=== PATIENT | male | born 1970 | race Caucasian/White ===

== ENCOUNTER 2022-12-19 11:26 | Emergency (ER) | payer OTHER, MEDICARE, MEDICAID ==
--- NOTE | 2022-12-19 12:30 | ED General ---
General Chief Complaint: Neurological Problems Stated Complaint: SEIZURES Nursing Triage Note: PT ARRIVED BY [facility] WITH CC OF SEIZURE. PT WAS IN CAR AND WENT UNRESPONSIVE, PTS PULLED PT OUT OF CAR AND STARTED CHEST COMPRESSIONS. WHEN EMS ARRIVED PT HAD, HAD A SEIZURE AND HAD A PRESENT PULSE. EMS STATED THAT PT HIT HEAD ON CAR WHEN HE WAS PULLED OUT. PT HAS TERMINAL LUNG CANCER AND IS ON HOSPICE. Source of Information: Patient, Family Exam Limitations: No Limitations History of Present Illness Date Seen by Provider: Dec 19, 2022 Time Seen by Provider: 11:50 Initial Comments Patient is a 52-year-old male who presents to the emergency department with a chief complaint of alleged seizure like activity/syncope. He has a history of end-stage lung cancer currently on hospice. He is here in town visiting family, resides in [facility]. He was driving in the car with his , not wearing his oxygen as he usually does at 3 to 4 L when he suddenly became unresponsive. EMS and police responded pulled him out of the car and EMS noted that it looked like he was having a seizure. His had been performing chest compressions in the car prior to them pulling him out of the vehicle. After approximately a minute EMS states that he was awake, alert. Patient has no recollection of the events. He denies any chest pain currently he denies feeling short of breath. He is approximately 86% on room air. He does appear little dyspneic. He is not nauseous, has no abdominal pain. He initially declines any evaluation. His arrived shortly after and states th at he has to be alive until they get back to [place] in 2 to 3 days. We did discuss evaluation in the emergency department with his hospice care team. They stated that as long as he was not admitted he could remain on hospice. His would like us to check some basic labs as the patient has been going to intermittent V. tach. He does have a pacer defibrillator. His defibrillator is turned off. It seems his pacer is kicking in when he goes into a slow V. tach rate in the 80s low 90s. He is asymptomatic when this happens. Multiple runs were observed on telemetry. Timing/Duration: 1/2 Hour Severity: Severe Associated Systoms: Denies Symptoms Allergies and Home Medications Allergies Coded Allergies: morphine (Verified Allergy, Unknown, 12/19/22) Uncoded Allergies: ALL -cillins (Allergy, Unknown, 12/19/22) Patient Home Medication List Home Medication List Reviewed: Yes Review of Systems Review of Systems Constitutional: see HPI Respiratory: no symptoms reported Cardiovascular: no symptoms reported Gastrointestinal: no symptoms reported Musculoskeletal: no symptoms reported Skin: no symptoms reported Psychiatric/Neurological: No Symptoms Reported All Other Systems Reviewed Negative Unless Noted: Yes Past Ocoyooy-Mqkftj-Vrvkod Hx Patient Social History Tobacco Use?: Yes Tobacco type used: Cigarettes Substance use?: No Alcohol Use?: No Past Medical History Surgery/Hospitalization HX: lung cancer Physical Exam Vital Signs Vital Signs - First Documented 12/19/22 12/19/22 11:35 11:37 Temp 36.4 Pulse 83 Resp 19 B/P (MAP) 122/77 (92) Pulse Ox 95 O2 Delivery Nasal Cannula O2 Flow Rate 3.00 Capillary Refill : Height, Weight, BMI Height: '" Weight: lbs. oz. kg; BMI Method: General Appearance: No Apparent Distress, WD/WN Eyes: Bilateral Eye Normal Inspection, Bilateral Eye PERRL, Bilateral Eye EOMI HEENT: PERRL/EOMI Neck: Normal Inspection Respiratory: No Accessory Muscle Use, No Respiratory Distress, Crackles, Rhonci (left > right) Cardiovascular: Regular Rate, Rhythm, Normal Peripheral Pulses Gastrointestinal: Non Tender, Soft Extremity: Normal Capillary Refill, Normal Inspection, Normal Range of Motion, No Calf Tenderness, Pedal Edema (1-2+ bilateral) Neurologic/Psychiatric: Alert, Oriented x3, No Motor/Sensory Deficits, Normal Mood/Affect, quality inspector II-XII Norm as Tested Skin: Warm/Dry, Pallor Progress/Results/Core Measures Suspected Sepsis SIRS Temperature: Pulse: 83 Respiratory Rate: 19 Blood Pressure 122 /77 Mean: 92 Laboratory Tests 12/19/22 11:30: Creatinine 1.21 Results/Orders Lab Results Laboratory Tests Test 12/19/22 11:30 Range/Units Sodium Level 127 L 135-145 MMOL/L Potassium Level 2.6 L 3.6-5.0 MMOL/L Chloride Level 83 L 98-107 MMOL/L Carbon Dioxide Level 30 21-32 MMOL/L Anion Gap 14 5-14 MMOL/L Blood Urea Nitrogen 14 7-18 MG/DL Creatinine 1.21 0.60-1.30 MG/DL Estimat Glomerular Filtration Rate 72 BUN/Creatinine Ratio 12 Glucose Level 164 H 70-105 MG/DL Calcium Level 9.6 8.5-10.1 MG/DL Magnesium Level 1.6 1.6-2.4 MG/DL My Orders Orders - BINTA MARIE MD Ed Iv/Invasive Line Start (12/19/22 12:24) Basic Metabolic Panel (12/19/22 12:24) Magnesium (12/19/22 12:24) Ekg Tracing (12/19/22 12:24) Potassium Chloride (Tablet) (K Dur Table (12/19/22 13:15) Potassium Cl 10meq/50ml Ivpb (Kcl 10 Meq (12/19/22 13:15) Ns Iv 1000 Ml (Sodium Chloride 0.9%) (12/19/22 13:08) General/Regular (12/19/22 Lunch) Medications Given in ED Vital Signs/I&O 12/19/22 12/19/22 12/19/22 11:35 11:37 15:18 Temp 36.4 Pulse 83 91 Resp 19 B/P (MAP) 122/77 (92) 103/84 Pulse Ox 95 98 O2 Delivery Nasal Cannula Nasal Cannula Nasal Cannula O2 Flow Rate 3.00 3.00 3.00 Capillary Refill : Blood Pressure Mean: 92 Progress Note #1: Time: 12:48 Progress Note Watching monitor - noted patient went into VT, up to 200, then vfib and was defibrillated. maintained level of consciousness throughout. Progress Note #2: Time: 13:10 Progress Note Patient seen and evaluated by me. Evaluation today includes physical exam, EKG, ongoing telemetry and after much discussion with patient and family minimal basic labs, magnesium level and basic metabolic panel. Physical exam remarkable for well-developed well-nourished ill-appearing 52-year-old male. Awake, alert and oriented. He has rhonchus crackly breath sounds bilaterally left greater than right. No increased work of breathing but was hypoxic on room air at 85%. Was placed on supplemental oxygen at 4 L per nasal cannula. Oxygen saturations improved to 94%. Heart is tachycardic, irregular and intermittently V. tach. Abdomen exam is soft. He has 1-2+ pitting edema in the bilateral lower extremities. Differential diagnosis based on history and physical exam metabolic derangement, acute coronary syndrome, pneumonia, end-of-life. Labs, EKG independently reviewed and interpreted by me. Patient is noted to go into V. tach quite frequently on telemetry. He does have a pacer defibrillator and is also frequently paced. His basic metabolic panel is significant for a sodium level of 127, potassium of 2.6, chloride of 83 bicarb of 30 BUN of 14 creatinine 1.21, blood sugar 164. Magnesium level is 1.6. Had a long discussion/shared decision making again with the patient regarding goals of evaluation. The patient is insistent on maintaining his hospice care and DNR status. His is quite distraught about this as they have to return to [place] at the end of the weekend. We did contact their hospice care provider who said that he could have evaluation and treatment in the ER but not admission in order to maintain hospice status. We will go ahead and treat his hypokalemia with 20 mEq of IV potassium and 40 p.o. This may help improve his cardiac dysrhythmia. He has been shocked by his defibrillator now twice. It is set to shock at rates greater than 160. I have advised both the patient and his family that there is a strong likelihood he may not survive the weekend. They verba lized understanding, wished to proceed with care and then discharged to home. (defibrillator fired again at this time in ED 1327) ECG Initial ECG Impression Date: Dec 19, 2022 Initial ECG Impression Time: 11:41 Initial ECG Rate: 125 Initial ECG Rhythm: V.Tach Comment paced and VT Departure Impression Primary Impression: Ventricular tachycardia (paroxysmal) Additional Impressions: History of lung cancer Hypokalemia Disposition: 01 HOME, SELF-CARE Condition: Improved Departure-Patient Inst. Decision time for Depature: 15:00 Referrals: NO,LOCAL PHYSICIAN (PCP/Family) Primary Care Physician Patient Instructions: Hypokalemia (DC) Add. Discharge Instructions: Your potassium was significantly low, likely contributing to your abnormal heart rhythm. Try and increase your potassium in your diet with dark green leafy vegetables, bananas. Follow-up with your hospice care team when you get back to [place]. BINTA MARIE MD Dec 19, 2022 12:30
[2022-12-19 12:31] LABS: POTASSIUM 2.6 MMOL/L (3.6-5.0)
[2022-12-19 12:32] LABS: CALCIUM 9.6 MG/DL (8.5-10.1)
[2022-12-19 12:36] LABS: CREATININE SERUM 1.21 MG/DL (0.60-1.30)
[2022-12-19 12:39] LABS: MAGNESIUM 1.6 MG/DL (1.6-2.4)
[2022-12-19] MEDS ORDERED: NS IV 1000 ML 1,000 ML IV STA (13:08)
[2022-12-19] MEDS ORDERED: KCL 20 MEQ TAB (K-DUR) PO ONE (13:15)
[2022-12-19] MEDS: POTASSIUM CL 10MEQ/50ML IVPB 50 ML IV SCH ×2 (13:15→14:13)
[2022-12-19 15:18] VITALS: BP 103/84
== END 2022-12-19 15:18 | disposition home or self-care (01) ==
LOC: ER 11:28
DX: I47.20 Ventricular tachycardia, unspecified (principal); E87.6 Hypokalemia; F17.210 Nicotine dependence, cigarettes, uncomplicated; Z85.118 Personal history of other malignant neoplasm of bronchus and lung; Z95.0 Presence of cardiac pacemaker
CPT/HCPCS: 36415; 80048; 83735; 93005; 93041